=== PATIENT | female | born 2000 | race Caucasian/White ===

== ENCOUNTER 2024-06-23 09:13 | Outpatient (AMB) | payer OTHER, SELFPAY ==
--- NOTE | 2024-06-23 09:21 | MHC.OFFWIV ---
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 Reports that she suffers recurrent UTIs with the last 1 being about 6 weeks ago. She has responded well to both cephalexin and Bactrim. Her symptoms include dysuria, incomplete bladder emptying, urinary frequency. She reports that she is currently staying with her boyfriend and her symptoms always occur postcoital. She does have a primary care provider. She is not active with a urologist. She denies any fever, chills, nausea, vomiting, vaginal discharge, concern for STDs. Her last menstrual period ended 3 days ago Exam Awake alert oriented, no acute distress Mucous membranes moist Regular rate and rhythm No CVAT bilat Abdomen is soft nontender. Unable to produce a urine sample at the time of the office visit. She was given multiple cups of water and still unable to produce a urine sample. Plan We will treat her with Bactrim twice a day for 5 days. Given 5 additional tabs to use postcoitally. Educated her to follow up with her primary care provider going forward. Vaginal hygiene reviewed with her today. Along with reasons to seek additional care. This note is constructed using voice recognition software. While every effort has been made to ensure accuracy in structural metal worker, still errors may have been included Sometimes, these errors may affect the content or meaning of the given sentence . Total time spent caring for the patient today was 30 minutes. This includes time spent before the visit reviewing the chart, time spent during the visit, and time spent after the visit on documentation PFSH Social History Patient Tobacco Use Status: Never used Tobacco Physical Exam Vital Signs: Last Vital Signs Temp 98.0 F 10/12/24 09:36 Pulse 82 06/23/24 09:36 BP 126/80 06/23/24 09:36 Pulse Ox 98 06/23/24 09:36 Oxygen Delivery Method Room Air 06/23/24 09:36 Assessment & Plan Assessment & Plan (1) Postcoital UTI: Code(s): N39.0 - Urinary tract infection, site not specified Plan: . Medications: New sulfamethoxazole-trimethoprim 800-160 mg (Bactrim DS) take twice per day x 5 days then use after intercourse as needed 1 tab PO BID 15 tabs 0RF Coding Level of Care Code Est Pt Level 4 (66738) Diagnoses Postcoital UTI N39.0
[2024-06-23 09:36] VITALS: BP 126/80; PULSE 82; TEMP 36.7; O2SAT 98
== END 2024-06-23 13:50 | disposition home or self-care (01) ==
PROVIDERS: Visit Provider Nurse Practitioner Family
DX: N39.0 Urinary tract infection, site not specified (principal)

== ENCOUNTER → 2024-06-23 09:13 | Outpatient (BNVA) | payer OTHER, SELFPAY | DX: N39.0 Urinary tract infection, site not specified (principal) | CPT/HCPCS: 99212 ==